=== PATIENT | male | born 1985 | race Caucasian/White ===

== ENCOUNTER 2016-10-21 13:29 | Emergency (ER) | payer OTHER ==
[~2016-10-21] VITALS: Ht 175.3 cm; Wt 105.9 kg
[2016-10-21 13:31] VITALS: BP 163/68; TEMP 99
[2016-10-21] MEDS ORDERED: SYNTHROID0.175 MG PO (13:35)
[2016-10-21] MEDS ORDERED: WELLBUTRIN XL300 M1 PO (13:35)
[2016-10-21] MEDS ORDERED: RITALIN 20M20 MG/TAB PO (13:36)
[2016-10-21] MEDS ORDERED: CELEXA 20MG20 MG/TAB PO (13:36)
[2016-10-21] MEDS ORDERED: LAMISIL250 M1 PO (13:39)
[2016-10-21] MEDS ORDERED: FLEXERIL 1010 MG/TAB PO (14:40)
[2016-10-21] MEDS ORDERED: NORCO 325 MG-51 TAB PO (14:40)
[2016-10-21] MEDS ORDERED: PREDNISONE20 MG PO (14:40)
[2016-10-21 14:47] VITALS: PULSE 89
== END 2016-10-21 14:48 | disposition home or self-care (01) ==
LOC: COL.ER 13:29
DX: M54.42 Lumbago with sciatica, left side (principal)